=== PATIENT | female | born 1945 | race Caucasian/White ===

== ENCOUNTER 2018-02-22 12:38 | Emergency (ER) | payer MEDICARE, OTHER ==
--- NOTE | 2018-02-22 13:37 | EDM.PDOC ---
ED HPI GENERAL MEDICAL PROBLEM - General Chief Complaint: Headache Stated Complaint: HEADACHES Time Seen by Provider: 02/22/18 13:02 Source of Information: Reports: Patient History Limitations: Reports: No Limitations - History of Present Illness INITIAL COMMENTS - FREE TEXT/NARRATIVE: History of present illness: []Patient states she feels pressure in the back of her head and its wrapping around her whole head for the past 2 weeks. She states usually this time he or she starts getting a sinus infection but this is different. She does have pressure in her right maxillary sinus that is not painful. She denies visual changes, numbness, tingling, nausea or vomiting. Patient states that last week she was reading a book and could not comprehend what she was reading so she read out loud and could not find her words. Since approximately 15 minutes and has not recurred. Patient feels off balance but has not had any difficulty walking. Review of systems: As per history of present illness and below otherwise all systems reviewed and negative. Past medical history: As per history of present illness and as reviewed below otherwise noncontributory. Surgical history: As per history of present illness and as reviewed below otherwise noncontributory. Social history: No reported history of drug or alcohol abuse. Family history: As per history of present illness and as reviewed below otherwise noncontributory. Physical exam: General: Well developed, well nourished in NAD HEENT: Atraumatic, normocephalic, pupils reactive, negative for conjunctival pallor or scleral icterus, mucous membranes moist, throat clear, neck supple, nontender, trachea midline. Lungs: Clear to auscultation, breath sounds equal bilaterally, chest nontender. Heart: S1S2, regular, negative for clicks, rubs, or JVD. Abdomen: Soft, nondistended, nontender. Negative for masses or hepatosplenomegaly. Negative for costovertebral tenderness. Pelvis: Stable nontender. Genitourinary: Deferred. Rectal: Deferred. Extremities: Atraumatic, negative for cords or calf pain. Neurovascular unremarkable. Neuro: Awake, alert, oriented. Cranial nerves II through XII unremarkable. Cerebellum unremarkable. Motor and sensory unremarkable throughout. Exam nonfocal. Diagnostics: []CT head is negative, CBC normal chemistry shows mildly low sodium at 130 and chloride 95-otherwise normal Therapeutics: [] Impression: []Mild hyponatremia Plan: []Decrease plain water intake, drink Gatorade and other fluids for hydration. Definitive disposition and diagnosis as appropriate pending reevaluation and review of above. Right Headache Pain Score (Numeric/FACES): 3 - Related Data Allergies Allergy/AdvReac Type Severity Reaction Status Date / Time azithromycin Allergy Unknown Pain Verified 02/22/18 13:02 Home Meds: Home Meds Aspirin 325 mg PO BEDTIME 02/22/18 [History] Calcium Carbonate [Tums Ultra Strength] 2 tab PO DAILY 02/22/18 [History] Cholecalciferol (Vitamin D3) [Vitamin D] 1 tab PO DAILY 02/22/18 [History] Fluticasone Furoate [Flonase Sensimist] 2 puff RENARD DAILY 02/22/18 [History] Latanoprost 1 drop EYEBOTH BEDTIME 02/22/18 [History] Multivitamin [One Daily] 1 tab PO DAILY 02/22/18 [History] Past Medical History HEENT History: Reports: Glaucoma Cardiovascular History: Reports: High Cholesterol Genitourinary History: Reports: Renal Disease Other Genitourinary History: pt states "stage 3 chronic kidney disease dx by a blood test" [employer] History: Reports: Other OB/BYN History: x2 c-sections 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 - Infectious Disease History Infectious Disease History: Reports: Chicken Pox, Measles, Mumps - Past Surgical History Female Surgical History: Reports: Breast Biopsy Other Female Surgeries/Procedures: Right sided breast biopsy, pt states it was negative Social & Family History - Family History Other Respiratory Family Hisory: father of lung cancer Other OBGYN Family History: mother and sister both had breast cancer Neurological: Reports: Alzheimers Disease Other Neurological Family History: father Oncologic: Reports: Breast, Lung Other Oncologic Family History: father had lung cancer, mother and sister had breast cancer - Tobacco Use Smoking Status *Q: Former Smoker Years of Tobacco use: 40 Packs/Tins Daily: 0.5 Used Tobacco, but Quit: No - Caffeine Use Caffeine Use: Reports: None - Alcohol Use Days Per Week of Alcohol Use: 7 Number of Drinks Per Day: 1 Total Drinks Per Week: 7 - Recreational Drug Use Recreational Drug Use: No ED ROS GENERAL - Review of Systems Review Of Systems: See Below (See history of present illness) - Physical Exam Exam: See Below (See history of present illness) Course - Vital Signs Last Recorded V/S: Last Vital Signs Temp 98.4 F 02/22/18 12:57 Pulse 77 02/22/18 12:57 Resp 16 02/22/18 12:57 BP 139/62 02/22/18 12:57 Pulse Ox 100 02/22/18 12:57 - Orders/Labs/Meds Orders: Active Orders 24 hr Category Date Time Status Head wo Cont [CT] Stat Exams 02/22/18 13:17 Taken Labs: Laboratory Tests 02/22/18 02/22/18 Range/Units 13:31 13:31 WBC 4.68 (4.0-11.0) K/uL RBC 3.81 L (4.30-5.90) M/uL Hgb 12.4 (12.0-16.0) g/dL Hct 35.0 L (36.0-46.0) % MCV 91.9 (80.0-98.0) fL MCH 32.5 H (27.0-32.0) pg MCHC 35.4 (31.0-37.0) g/dL RDW Std Deviation 43.0 (28.0-62.0) fl RDW Coeff of Anjana 13 (11.0-15.0) % Plt Count 199 (150-400) K/uL MPV 9.10 (7.40-12.00) fL Neut % (Auto) 73.1 (48.0-80.0) % Lymph % (Auto) 19.2 (16.0-40.0) % [place] % (Auto) 7.3 (0.0-15.0) % Eos % (Auto) 0.2 (0.0-7.0) % Baso % (Auto) 0.2 (0.0-1.5) % Neut # (Auto) 3.4 (1.4-5.7) K/uL Lymph # (Auto) 0.9 (0.6-2.4) K/uL [place] # (Auto) 0.3 (0.0-0.8) K/uL Eos # (Auto) 0.0 (0.0-0.7) K/uL Baso # (Auto) 0.0 (0.0-0.1) K/uL Nucleated RBC % 0.0 /100WBC Nucleated RBCs # 0 K/uL Sodium 130 L (136-145) mmol/L Potassium 4.3 (3.5-5.1) mmol/L Chloride 95 L (98-107) mmol/L Carbon Dioxide 26.0 (21.0-32.0) mmol/L BUN 15 (7.0-18.0) mg/dL Creatinine 1.0 (0.6-1.0) mg/dL Est Cr Clr Drug Dosing 46.43 mL/min Estimated GFR (MDRD) 54.7 ml/min Glucose 96 (74-106) mg/dL Calcium 8.8 (8.5-10.1) mg/dL Total Bilirubin 0.3 (0.2-1.0) mg/dL AST 26 (15-37) IU/L ALT 19 (14-63) IU/L Alkaline Phosphatase 39 L (46-116) U/L Total Protein 7.1 (6.4-8.2) g/dL Albumin 3.9 (3.4-5.0) g/dL Globulin 3.2 (2.0-3.5) g/dL Albumin/Globulin Ratio 1.2 L (1.3-2.8) Departure - Departure Time of Disposition: 14:33 Disposition: Home, Self-Care 01 Condition: Good Clinical Impression: Hyponatremia - Discharge Information Referrals: PCP,None [Primary Care Provider] - Forms: ED Department Discharge Additional Instructions: The following information is given to patients seen in the emergency department who are being discharged to home. This information is to outline your options for follow-up care. We provide all patients seen in our emergency department with a follow-up referral. The need for follow-up, as well as the timing and circumstances, are variable depending upon the specifics of your emergency department visit. If you don't have a primary care physician on staff, we will provide you with a referral. We always advise you to contact your personal physician following an emergency department visit to inform them of the circumstance of the visit and for follow-up with them and/or the need for any referrals to a consulting specialist. The emergency department will also refer you to a specialist when appropriate. This referral assures that you have the opportunity for follow-up care with a specialist. All of these measure are taken in an effort to provide you with optimal care, which includes your follow-up. Under all circumstances we always encourage you to contact your private physician who remains a resource for coordinating your care. When calling for follow-up care, please make the office aware that this follow-up is from your recent emergency room visit. If for any reason you are refused follow-up, please contact the [facility] Emergency Department at and asked to speak to the emergency department charge nurse. Decreased plain water intake drink other fluids such as Gatorade, juice and milk. Follow up with her primary care return if symptoms continue or worsen. [facility] [address] [place] [phone] - My Orders Last 24 Hours: My Active Orders 02/22/18 13:17 Head wo Cont [CT] Stat - Assessment/Plan Last 24 Hours: My Active Orders 02/22/18 13:17 Head wo Cont [CT] Stat
--- NOTE | 2018-02-23 14:27 | CT ---
EXAM DATE: 02/22/18 PATIENT'S AGE: 72 Patient: TAVARES ROBERTS Facility: [place], [place] Site . Site : 1945 Study: CT Head [id number] 1:46:10 PM Ordering Physician: Skyler Amezcua Final Report: INDICATION: Headache. TECHNIQUE: CT head without contrast. Axial images, with sagittal and coronal reconstructions. COMPARISON: None. FINDINGS: No abnormal intracranial mass effect or midline shift. No intracranial hemorrhage. No abnormal areas of attenuation are seen within the brain. CSF spaces are age-appropriate. Visualized paranasal sinuses are clear. Mastoids and middle ear cavities are clear. No acute osseous abnormality. IMPRESSION: No CT evidence of an acute intracranial abnormality. Dictated by Levar Boudreaux MD @ 02/22/2018 2:12:38 PM Dictated by: Levar Boudreaux MD @ 02/22/2018 14:12:49 (Electronic Signature) Report Signed by Proxy. [facility]ENTER[facility]
== END 2018-02-22 14:43 | disposition home or self-care (01) ==
LOC: MW.ED 12:38
DX: E87.1 Hypo-osmolality and hyponatremia (principal); N18.3 Chronic kidney disease, stage 3 (moderate); E78.00 Pure hypercholesterolemia, unspecified; Z88.1 Allergy status to other antibiotic agents; Z79.899 Other long term (current) drug therapy; Z87.891 Personal history of nicotine dependence
CPT/HCPCS: 36415; 70450; 70450-26; 80053; 85025; 99283-25

== ENCOUNTER 2019-07-15 21:50 | Emergency (ER) | payer MEDICARE, OTHER ==
[2019-07-15] MEDS ORDERED: Cephalexin 500 MG Cap PO ONE (22:00)
--- NOTE | 2019-07-15 22:00 | EDM.PDOC ---
ED HPI GENERAL MEDICAL PROBLEM - General Chief Complaint: Bite:Animal, Insect Stated Complaint: WASP BITE Time Seen by Provider: 07/15/19 22:00 Source of Information: Reports: Patient History Limitations: Reports: No Limitations - History of Present Illness INITIAL COMMENTS - FREE TEXT/NARRATIVE: HISTORY AND PHYSICAL: History of present illness: Patient is a 74-year-old female presents to the ED with wasp bite. She states she was bitten yesterday, this afternoon noticed more swelling and redness. She states it is not itchy or painful. She denies fevers, chills, nausea, vomiting. Review of systems: As per history of present illness and below otherwise all systems reviewed and negative. Past medical history: As per history of present illness and as reviewed below otherwise noncontributory. Surgical history: As per history of present illness and as reviewed below otherwise noncontributory. Social history: No reported history of drug or alcohol abuse. Family history: As per history of present illness and as reviewed below otherwise noncontributory. Physical exam: General: Patient sitting comfortably in no acute distress and nontoxic appearing HEENT: Atraumatic, normocephalic, pupils reactive, negative for conjunctival pallor or scleral icterus, mucous membranes moist, throat clear, neck supple, nontender, trachea midline. No meningeal signs. Lungs: Clear to auscultation, breath sounds equal bilaterally, chest nontender. Heart: S1S2, regular, negative for clicks, rubs, or overt murmur. Abdomen: Soft, nondistended, nontender. Negative for masses or hepatosplenomegaly. Negative for costovertebral tenderness. No rigidity, rebound , guarding. Pelvis: Stable nontender. Genitourinary: Deferred. Rectal: Deferred. Extremities: There is a small lesion at the forearm with minimal surrounding swelling and a large amount of surrounding erythema with minimal warmth. Atraumatic, negative for cords or calf pain. Neurovascular unremarkable. Neuro: Awake, alert, oriented. Cranial nerves II through XII unremarkable. Cerebellum unremarkable. Motor and sensory unremarkable throughout. Exam nonfocal. Notes: Diagnostics: declined labs Therapeutics: [] Prescriptions: Impression: Wasp sting local allergica reaction vs cellulitis Plan: Taken antibiotic as instructed Follow up with primary care provider Return to ED as needed as discussed Definitive disposition and diagnosis as appropriate pending reevaluation and review of above. left arm Pain Score (Numeric/FACES): 5 - Related Data Allergies Allergy/AdvReac Type Severity Reaction Status Date / Time azithromycin Allergy Unknown Pain Verified 07/15/19 21:56 Home Meds: Home Meds Aspirin 325 mg PO BEDTIME 02/22/18 [History] Calcium Carbonate [Tums Ultra Strength] 2 tab PO DAILY 02/22/18 [History] Cholecalciferol (Vitamin D3) [Vitamin D] 1 tab PO DAILY 02/22/18 [History] Fluticasone Furoate [Flonase Sensimist] 2 puff RENARD DAILY 02/22/18 [History] Latanoprost 1 drop EYEBOTH BEDTIME 02/22/18 [History] Multivitamin [One Daily] 1 tab PO DAILY 02/22/18 [History] cephALEXin [Keflex] 500 mg PO BID #20 cap 07/15/19 [Rx] Past Medical History HEENT History: Reports: Glaucoma Cardiovascular History: Reports: High Cholesterol Genitourinary History: Reports: Renal Disease Other Genitourinary History: pt states "stage 3 chronic kidney disease dx by a blood test" 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: Other [employer]OR [employer] History: x2 c-sections 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 - Infectious Disease History Infectious Disease History: Reports: Chicken Pox, Measles, Mumps - Past Surgical History Female Surgical History: Reports: Breast Biopsy Other Female Surgeries/Procedures: Right sided breast biopsy, pt states it was negative Social & Family History - Family History Family Medical History: Noncontributory Other Respiratory Family Hisory: father of lung cancer Other OBGYN Family History: mother and sister both had breast cancer Neurological: Reports: Alzheimers Disease Other Neurological Family History: father Oncologic: Reports: Breast, Lung Other Oncologic Family History: father had lung cancer, mother and sister had breast cancer - Caffeine Use Caffeine Use: Reports: None - Recreational Drug Use Recreational Drug Use: No ED ROS GENERAL - Review of Systems Review Of Systems: ROS reveals no pertinent complaints other than HPI. ED EXAM, ANIMAL BITE - Physical Exam Exam: See Below (see dictation) Course - Vital Signs Last Recorded V/S: Last Vital Signs Temp 96.7 F 07/15/19 21:56 Pulse 79 07/15/19 21:56 Resp 18 07/15/19 21:56 BP 175/64 H 07/15/19 21:56 Pulse Ox 99 07/15/19 21:56 - Orders/Labs/Meds Meds: Medications Discontinued Medications Generic Name Dose Route Start Last Admin Trade Name Carlo PRN Reason Stop Dose Admin Cephalexin 500 mg 07/15/19 22:00 Keflex PO 07/15/19 22:01 ONETIME ONE Departure - Departure Time of Disposition: 22:01 Disposition: Home, Self-Care 01 Condition: Good Clinical Impression: Wasp sting, Cellulitis - Discharge Information Prescriptions: cephALEXin [Keflex] 500 mg PO BID #20 cap Instructions: Bee, Wasp, or Hornet Sting, Adult Referrals: PCP,Unknown [Primary Care Provider] - Forms: ED Department Discharge Additional Instructions: The following information is given to patients seen in the emergency department who are being discharged to home. This information is to outline your options for follow-up care. We provide all patients seen in our emergency department with a follow-up referral. The need for follow-up, as well as the timing and circumstances, are variable depending upon the specifics of your emergency department visit. If you don't have a primary care physician on staff, we will provide you with a referral. We always advise you to contact your personal physician following an emergency department visit to inform them of the circumstance of the visit and for follow-up with them and/or the need for any referrals to a consulting specialist. The emergency department will also refer you to a specialist when appropriate. This referral assures that you have the opportunity for follow-up care with a specialist. All of these measure are taken in an effort to provide you with optimal care, which includes your follow-up. Under all circumstances we always encourage you to contact your private physician who remains a resource for coordinating your care. When calling for follow-up care, please make the office aware that this follow-up is from your recent emergency room visit. If for any reason you are refused follow-up, please contact the [facility] Emergency Department at and asked to speak to the emergency department charge nurse. [facility] [address] [place] [id number] [place] [id number] [place] [phone] Taken antibiotic as instructed. Take benadryl every 6 hours as instructed. Follow up with primary care provider Return to ED as needed as discussed
== END 2019-07-15 22:10 | disposition home or self-care (01) ==
LOC: MW.ED 21:50
DX: T63.461A Toxic effect of venom of wasps, accidental (unintentional), initial encounter (principal); L03.114 Cellulitis of left upper limb; E78.00 Pure hypercholesterolemia, unspecified; Z88.1 Allergy status to other antibiotic agents; Z79.82 Long term (current) use of aspirin; Z79.899 Other long term (current) drug therapy
CPT/HCPCS: 99282; A9270

== ENCOUNTER 2024-09-05 19:54 | Emergency (ER) | payer MEDICARE, OTHER ==
[2024-09-05] MEDS: diphenhydrAMINE 50 MG Cap PO ONE (22:30)
== END 2024-09-05 22:37 | disposition home or self-care (01) ==
LOC: MW.ED 19:54
DX: T63.461A Toxic effect of venom of wasps, accidental (unintentional), initial encounter (principal); Z88.1 Allergy status to other antibiotic agents; Z79.82 Long term (current) use of aspirin; Z79.899 Other long term (current) drug therapy
CPT/HCPCS: 99282; A9270

== ENCOUNTER 2024-12-22 20:28 | Emergency (ER) | payer MEDICARE, OTHER ==
[2024-12-22] MEDS: Acetaminophen 500 MG Tab PO ONE (21:24)
== END 2024-12-22 21:35 | disposition home or self-care (01) ==
LOC: MW.ED 20:28
DX: S00.03XA Contusion of scalp, initial encounter (principal); S63.502A Unspecified sprain of left wrist, initial encounter; Z79.899 Other long term (current) drug therapy; Z79.82 Long term (current) use of aspirin; Z88.1 Allergy status to other antibiotic agents; W00.0XXA Fall on same level due to ice and snow, initial encounter
CPT/HCPCS: 70450; 72125; 73110; 99284; A9270; 99283

== ENCOUNTER 2025-10-11 08:08 | Day surgery (SDC) | payer MEDICARE, OTHER ==
[~2025-10-11 08:08] MED LIST: Sodium Chloride 0.9% 10 ML Syringe FLUSH PRN; Sodium Chloride 0.9% 2.5 ML Syringe FLUSH PRN
[2025-10-11] MEDS: Lactated Ringers 1,000 ML IV SCH (08:30)
[2025-10-11] MEDS ORDERED: Propofol 200 MG/20 ML SDV ONE (09:34)
== END 2025-10-11 10:45 | disposition home or self-care (01) ==
LOC: MW.SDS 08:08
PROVIDERS: ATTEND Surgery
DX: Z12.11 Encounter for screening for malignant neoplasm of colon (principal); K57.30 Diverticulosis of large intestine without perforation or abscess without bleeding; R19.5 Other fecal abnormalities; N18.9 Chronic kidney disease, unspecified; E66.9 Obesity, unspecified; Z88.8 Allergy status to other drugs, medicaments and biological substances; Z91.09 Other allergy status, other than to drugs and biological substances; Z79.82 Long term (current) use of aspirin; Z79.899 Other long term (current) drug therapy; Z87.891 Personal history of nicotine dependence; Z68.25 Body mass index [BMI] 25.0-25.9, adult
CPT/HCPCS: G0121; J2704; J7120